=== PATIENT | male | born 1955 | race Caucasian/White ===

== ENCOUNTER 2017-03-05 09:56 | Day surgery (SDC) | payer MEDICARE ==
[~2017-03-05] VITALS: Ht 175.3 cm; Wt 105.0 kg
[2017-03-05] MEDS ORDERED: NASONEX NASAL S17 GM NS (11:58)
[2017-03-05] MEDS ORDERED: PROVENTIL HFA6.7 GM INH (11:58)
[2017-03-05] MEDS ORDERED: ADVAIR 250/501 DISK INH (11:58)
[2017-03-05] MEDS ORDERED: TYLENOL W/CODEI1 TAB PO (11:58)
[2017-03-05] MEDS ORDERED: FUROSEMIDE40 MG PO (11:59)
[2017-03-05] MEDS ORDERED: BYDUREON P2 MG/0.65 SC (11:59)
[2017-03-05] MEDS ORDERED: HUMULIN 70100 UNIT/1 SC (12:00)
[2017-03-05] MEDS ORDERED: KENALOG 0.1 % O15 GM TOPICAL (12:00)
[2017-03-05] MEDS ORDERED: PLAVIX75 MG PO (12:01)
[2017-03-05] MEDS ORDERED: NEURONTIN600 MG PO (12:01)
[2017-03-05] MEDS ORDERED: MIRALAX17 GM PO (12:02)
[2017-03-05] MEDS ORDERED: LOVASTATIN40 MG PO (12:02)
[2017-03-05 12:09] VITALS: BP 149/85; Ht 175.3 cm; Wt 105.0 kg
[2017-03-05 12:45] LABS: HEMATOCRIT 45.6 % (42.0-54.0); HEMOGLOBIN 14.8 g/dL (13.5-17.5); MCH 30.5 pg (26.0-34.0); MCHC 32.5 g/dL (31.0-37.0); MCV 93.8 fL (80.0-100.0); RBC 4.86 10x6/uL (4.20-6.10); RDW 13.4 % (11.5-14.5); WBC 10.5 10x3/uL (4.8-10.8)
[2017-03-05 12:54] LABS: CALC OSMOLALITY 286 mosm/kg (275-300); CARBON DIOXIDE 28.8 mmol/L (21.0-32.0); CHLORIDE - SERUM 104 mmol/L (98-107); GLUCOSE 272 mg/dL (74-106); POTASSIUM - SERUM 3.5 mmol/L (3.5-5.1); SODIUM 138 mmol/L (136-145); UREA NITROGEN 15 mg/dL (7-18); eGFR NON AFRICAN AMERICAN 80 mL/min (90-120)
--- NOTE | 2017-03-07 07:42 | OP ---
PATIENT NAME: YORDY MORGAN MEDICAL RECORD: [id number] :53 LOCATION:D.OPS ADMISSION DATE: SURGEON: JAN BRITO DO DATE OF OPERATION: 03/05/2017 PROCEDURE: Colonoscopy with endoscopic mucosal resection, hot snare polypectomy, biopsy and submucosal injection for tattooing. INDICATIONS FOR PROCEDURE: Periumbilical abdominal pain, change in bowel habits and fecal occult blood positive. SCOPE: Olympus video pediatric colonoscope. MEDICATIONS: Propofol 1200 mg IV per anesthesia. Withdrawal time greater than 15 minutes. ESTIMATED BLOOD LOSS: Less than 3 cc. FINDINGS: Informed consent was given. The patient was made comfortable with the above medication. After reaching an adequate level of sedation by slow IV push. The patient was placed on his left side. A digital rectal examination was performed, it was normal other than prostatic hypertrophy. There were no nodules or masses palpated on the prostate. The scope was then advanced under direct visualization through the anus to the cecum. The scope was then slowly withdrawn and mucosa was carefully examined. In the proximal ascending colon, just on the opposite wall from the ileocecal valve was a large, flat polyp measuring approximately 2 cm x 2.5 cm in size. It was lifted to look at closely. It was felt that this was too large for endoscopic mucosal resection, so biopsies were taken and tattoo was placed adjacent to the site. Upon slow withdrawal, just distal to this site in the mid to distal ascending colon, was a larger polyp which was also flat. It measured approximately 3.5-4 cm x 3 cm in size. It occupied 45% to 50% of the wall of the colon. There was a third polyp next to this site. Polyp was lifted and biopsies were taken. Tattoo was also placed near the site while awaiting pathology. In the transverse colon, there was another flat lesion, which was lifted. The polyp was too flat to be snared. It measured approximately 1.5 x 1 cm. Tattoo was placed adjacent to this site, so that APC could be performed. Upon withdrawal, there were 4 other polyps which were sessile and semi-flat in the left side of the colon. A variety of measures were taken to remove the polyps. One was removed with endoscopic mucosal resection technique with a lift and a hot snare polypectomy. Others were removed with hot snare alone. The polyps range in size from 6 mm to 1.2 cm. Retroflexion was performed in the rectum with no abnormalities found. The scope was withdrawn from the patient. The patient tolerated the procedure well and there were no complications. IMPRESSION: 1. Three large flat polyps as described above, located in the proximal ascending, mid to distal ascending and transverse colon. All were marked with tattoo for planned APC versus resection pending pathology and CT findings. 2. Multiple other polyps as described above, which were removed with EMR technique and snare polypectomy. PLAN AND RECOMMENDATIONS: 1. Discharge home when recovery parameters are met. OPERATIVE REPORT [id number] YORDY MORGAN 2. Referral to Dr. Baum for APC versus resection, pending pathology and CT findings. 3. CT abdomen and pelvis regarding large colon polyps. 4. check CEA level. 5. Follow up biopsy specimen results. 6. Continue current medications and current diet. TRANSINT:[id number] Voice Confirmation ID: [id number] DOCUMENT ID: [id number] JAN BRITO DO at 0742 CC: [id number] DICTATION DATE: 03/05/17 140 DISPATCHER SERVICE CHIEF: 03/05/17 2306 [facility] 03/05/17 [facility] [address] [place] [address]
== END 2017-03-05 15:10 | disposition home or self-care (01) ==
LOC: D.OPS 09:56
PROVIDERS: Anesthesiology
DX: K63.5 Polyp of colon (principal); D12.2 Benign neoplasm of ascending colon; D12.3 Benign neoplasm of transverse colon; N40.0 Benign prostatic hyperplasia without lower urinary tract symptoms

== ENCOUNTER 2017-05-29 09:27 | Inpatient (IN) | payer MEDICARE ==
[~2017-05-29] VITALS: Ht 175.3 cm; Wt 103.6 kg
[2017-05-29] VITALS (8 sets, daily range): BP systolic 179–199; BP diastolic 77–96; BMI 34.2
--- NOTE | ~2017-05-29 | OP ---
PATIENT NAME: YORDY MORGAN MEDICAL RECORD: [id number] :53 LOCATION:D.MS [id number] ADMISSION DATE:05/29/17 SURGEON: TONA PARK MD DATE OF OPERATION: 05/30/2017 PREOPERATIVE DIAGNOSES: Endoscopically unresectable colonic polypoid mass, tattooed. POSTOPERATIVE DIAGNOSES: Endoscopically unresectable colonic polypoid mass, tattooed, with nodular hepatomegaly. PROCEDURE: Hand-assisted laparoscopic right colectomy, also 18-gauge core needle liver biopsy. SURGEON: Tona Park MD CONTROL SUPERVISOR: None. BLOOD LOSS: Minimal. ANESTHESIA: General. COMPLICATIONS: None. The risks, possible complications and alternatives of procedure were explained to the patient. He elects to proceed. The discussion specifically included, but was not limited to, bleeding requiring emergency reoperation, infection, intestinal injury as well as an open procedure. OPERATIVE COURSE: The patient was conveyed to the operating room electively on 05/30/2017. General anesthesia was induced by the anesthesia staff. The abdomen was sterilely prepped and draped. A transverse incision was accomplished in the right side of the abdomen between the anterior superior iliac spine as well as the right costal margin. Sharp dissection was carried down through skin and subcutaneous tissue. I incised the external oblique aponeurosis along the direction of its fibers. I then incised through the internal oblique and transversus abdominis muscles. The peritoneal cavity was entered sharply. Stay sutures of 0 Vicryl were placed on the side of the peritoneum. A GelPort device was inserted. A 12-mm trocar was inserted through the Gelport device. CO2 insufflation was begun. Two more trocars were inserted. These were 5-mm trocars. They were inserted under direct internal vision utilizing a television camera. We will insert in the umbilicus. Another was inserted in the epigastrium. During insertion of the GelPort device as well as the trocars, there appeared to have been no injury to the bowels, any intraperitoneal or retroperitoneal structures. Utilizing the hand-assisted device, I incised along the white line of Toldt. I took down the hepatic retroperitoneal attachments. I folded the right colon medially. I swept down the duodenum. I was then able to exteriorize the right colon. I swept down the duodenum. The ureter was swept down as well and was protected during the operative procedure. A window was created in the mesentery of the distal ileum. I stapled across end of the ileum with Endo-JUSTA type staple utilizing a JUSTA-75 stapler utilizing a blue load. I then chose my distal extent of the resection as the proximal OPERATIVE REPORT [id number] YORDY MORGAN transverse colon just proximal to the middle colic artery. I created a window in the mesocolon. I stapled across the colon here utilizing a JUSTA-75 stapler. The interpose mesentery was taken down with the EnSeal device. I opened up the specimen on the back table. It appeared to contain the polypoid mass that had not been able to be removed endoscopically. I wanted more of the distal margin. However, I scrubbed back can return to the operative theater and excised another portion of the transverse colon, approximately 6 more inches of the transverse colon. A window was created in the mesentery of the transverse colon. I stapled the colon at this site with a JUSTA-75 stapler. The interpose mesentery was taken down with the EnSeal device. I opened up this portion of the colon on the back table. I noted no evidence of a colonic mass. Meticulous hemostasis was achieved with the electrocautery, we noted that there was an enlargement of the liver. Under laparoscopic guidance, I percutaneously accessed the right upper quadrant utilizing an 18-gauge core needle liver biopsy device. Cores were obtained over the convexity of the liver with the biopsy device. The biopsy sites were made hemostatic with the electrocautery. I then exteriorized the ileum as well as the transverse colon. These structures were brought into apposition side by side. I ensured there was no twisting or kinking of either a tubular structure. There was some redundant omentum which was excised utilizing EnSeal device. The small bowel and colon were placed in apposition side by side. They were held in place with numerous 3-0 Vicryl sutures. An enterotomy and colotomy were accomplished. Anvils of the JUSTA-75 stapler were advanced. I then fired. The resulting intracolonic defect was closed with a single firing of the TA 60 stapler. I then oversewed the staple line with multiple interrupted horizontal mattress 3-0 Vicryl sutures. The mesenteric rent was closed with a running #1 Vicryl. I irrigated and aspirated the right upper quadrant. There was no bleeding even at low pressure of 8. The 5-mm trocars were removed. The peritoneum in the right side of abdomen was closed with running #1 Vicryl. The transverse abdominis and internal oblique muscles were closed with running #1 Vicryls. The external oblique aponeurosis was closed with running #1 Vicryls. The deep adipose tissue was closed with interrupted 3-0 Vicryls. Subcutaneous adipose tissue was closed with interrupted 3-0 Vicryls. The skin was approximated with a running intracuticular 4-0 Vicryl. The skin at the umbilicus was closed with interrupted 4-0 Vicryl Rapide sutures. The other trocar site, a 5-mm trocar site in the epigastrium, was closed with a single intracuticular 3-0 Vicryl suture. Sterile dressings were applied. The patient was then extubated and conveyed to post-anesthesia care unit where he was in stable condition. TRANSINT:[id number] Voice Confirmation ID: [id number] DOCUMENT ID: [id number] OPERATIVE REPORT [id number] YORDY MORGAN ROBERT MD CC: FILIPE CARTAGENA and JAN BRITO DO [id number] DICTATION DATE: 05/30/171751 BATTER SCALER: 05/31/17 010 ADM IN [facility] [address] [place] [address]
--- NOTE | ~2017-05-29 | OP ---
PATIENT NAME: YORDY MORGAN MEDICAL RECORD: [id number] :53 LOCATION:D.MS [id number] ADMISSION DATE:05/29/17 SURGEON: ADÁN PARK MD DATE OF OPERATION: 05/29/2017 PREOPERATIVE DIAGNOSIS: Tattooed colon polyps times 3 involving the ascending colon as well as the transverse colon. POSTOPERATIVE DIAGNOSES: A total of 6 polypoid lesions were noted. I was able to remove 5 of these. One of these which was tattooed, I could not remove, it was centrally umbilicated, indurated and is suspicious for malignancy. PROCEDURES: 1. Total colonoscopy to cecum. 2. Hot biopsy forceps polypectomy times 1. 3. Piecemeal polypectomy times 1 with ablation of the base with the argon plasma engraver signature. 4. Biopsies of colonic mass involving the transverse colon with a partial ablation utilizing the argon plasma engraver signature, which is a radiofrequency type of ablation of a benign colonic process. SURGEON: Adán Park MD. PROTECTIVE SIGNAL OPERATOR: None. BLOOD LOSS: Minimal. ANESTHESIA: General. COMPLICATIONS: None. The risks, possible complications and alternatives to procedure were explained to the patient. He elects to proceed. OPERATIVE COURSE: The patient was conveyed to the operating room electively on 05/29/2017. General anesthesia was induced by the anesthesia staff. The patient was placed in the Evangelista position. A digital rectal examination was performed. A colonoscope was inserted through the anus. It was easily advanced to the cecum. The prep was inadequate. I slowly withdrew the endoscope. A total of 4 hot biopsy forceps polypectomies were performed. One of these was in the rectum. This was the largest of the lesions that were removed utilizing hot biopsy forceps polypectomy technique. It was a 1.8-cm lesion. All the lesions were removed in their entireties. There was a proximal colonic lesion across the ileocecal valve. This was removed in piecemeal fashion utilizing the cold endoscopic biopsy forceps. There was minimal amount of residual polypoid tissue and this was ablated with the argon plasma engraver signature utilizing the right colon setting in the forced mode. The most worrisome lesion was also a tattooed lesion. I biopsied this several times. When I pushed on the lesion with my biopsy forceps, I could tell that it was centrally umbilicated and it was quite firm and fixed. This is very suspicious for malignancy. After biopsying it several times, I took the argon plasma engraver signature and ablated as much of the polyps as I could utilizing the right colon setting in the forced OPERATIVE REPORT [id number] YORDY MORGAN. I slowly withdrew the endoscope. I irrigated and aspirated extensively. The fourth hot biopsy forceps polypectomy was performed in the rectum. I then performed a retroflexed view in the rectum. I unretroflexed the scope and removed it under direct vision. I have given the patient the option of staying overnight and having his right colectomy tomorrow as he has an unresectable colonic polypoid mass or to go home and return at a later date to undergo colectomy. He has elected to stay overnight. That way, he can avoid another bowel prep. He will need to made a full admit. TRANSINT:[id number] Voice Confirmation ID: [id number] DOCUMENT ID: [id number] ADÁN PARK MD CC: [id number] DICTATION DATE: 05/30/17 174 NEON LIGHT INSTALLER: 05/31/17 0033 ADM IN [facility] [address] [place] [id number]
--- NOTE | ~2017-05-29 | HP ---
PATIENT: YORDY MORGAN MEDICAL RECORD: [id number] ACCOUNT: [id number] LOCATION:D.MS [id number] : 53 ADMISSION DATE: 05/29/17 HISTORY AND PHYSICAL EXAMINATION DATE: 05/29/2017 HISTORY OF PRESENT ILLNESS: The patient underwent attempted removal of a number of colon polyps. I was able to remove 5 of 6 colon polyps. One colon polyp was indurated and ulcerated centrally. It appears to be fixed. This is quite worrisome for malignancy. I have given the patient the option of going home, being restarted on his Plavix and then recurring in 3-4 weeks after holding the Plavix again and him undergoing another bowel prep in preparation for a hand-assisted right hemicolectomy. Alternatively, I have given him the option of staying here in the hospital and we will do the operation on 05/30/2017. He is elected the latter choice. The risks, possible complications and alternatives to procedure were explained to the patient. He elects to proceed. The discussion specifically included, but was not limited to, bleeding requiring an emergency reoperation, infection, intestinal injury as well as colostomy formation and the possible need for chemotherapy in the future. TRANSINT:[id number] Voice Confirmation ID: [id number] DOCUMENT ID: [id number] TONA PARK MD CC: [id number] DICTATION DATE: 05/30/171737 GREENS KEEPER: 05/30/171956 ADM IN [facility] [address] [place] [address]
[~2017-05-29 09:27] MED LIST: ADVAIR 250/501 DISK INH; BYDUREON P2 MG/0.65 SC; FUROSEMIDE40 MG PO; HUMULIN 70100 UNIT/1 SC; K-DUR20 MEQ PO; KENALOG 0.1 % O15 GM TOPICAL; LOVASTATIN40 MG PO; MIRALAX17 GM PO; NASONEX NASAL S17 GM NS; NEURONTIN600 MG PO; PLAVIX75 MG PO; PROVENTIL HFA6.7 GM INH; TRAVATAN Z2.5 ML EACH EYE; TYLENOL W/CODEI1 TAB PO
[2017-05-29 10:43] LABS: HEMATOCRIT 43.8 % (42.0-54.0); HEMOGLOBIN 14.3 g/dL (13.5-17.5); MCH 30.8 pg (26.0-34.0); MCHC 32.6 g/dL (31.0-37.0); MCV 94.2 fL (80.0-100.0); MEAN PLATELET VOLUME 11.9 fL (7.4-10.4); RBC 4.65 10x6/uL (4.20-6.10); RDW 13.8 % (11.5-14.5); WBC 10.6 10x3/uL (4.8-10.8)
[2017-05-29 10:54] LABS: CALC OSMOLALITY 283 mosm/kg (275-300); CALCIUM 8.5 mg/dL (8.5-10.1); CARBON DIOXIDE 29.1 mmol/L (21.0-32.0); CHLORIDE - SERUM 103 mmol/L (98-107); GLUCOSE 151 mg/dL (74-106); SODIUM 141 mmol/L (136-145); UREA NITROGEN 12 mg/dL (7-18); eGFR NON AFRICAN AMERICAN 80 mL/min (90-120)
--- NOTE | 2017-05-29 15:18 | NUR ---
FSBS 118MG/DL
--- NOTE | 2017-05-29 16:15 | NUR ---
PATIENT TO ROOM AT THIS TIME. VS STABLE. IV INTACT. NO COMPLAINTS AT THIS TIME. STATED HE DIDNT WANT TO BE HERE AND THAT HE SHOULD HAVE JUST WENT HOME. BP INCREASED AT THIS TIME. RR NURSE STATED THAT HIS BASELINE IS HIGH SO ITS NORMAL FROM HIM. PATIENT STATED HE WANTS TO GET UP. RR NURSE TOLD HIM HE COULDNT AT THIS TIME. CHANGED PAD UNDER PATIENT. CALL LIGHT WITHIN REACH.
--- NOTE | 2017-05-29 16:35 | NUR ---
PATIENT UP TO BR WITH ASSIST. VS STABLE BUT BP STILL INCREASED. IV INTACT. NO COMPLAINTS. CALL LIGHT WITHIN REACH.
[2017-05-29 17:12] LABS: BASOPHILS 0.2 % (0-2); EOSINOPHILS 0.4 % (0-7); HEMATOCRIT 44.1 % (42.0-54.0); HEMOGLOBIN 14.4 g/dL (13.5-17.5); IMMATURE GRANULOCYTES 0.1 % (0-5); LYMPHOCYTES 16.8 % (15-50); MCHC 32.7 g/dL (31.0-37.0); MEAN PLATELET VOLUME 12.6 fL (7.4-10.4); MONOCYTES 6.4 % (2-11); NEUTROPHILS 76.1 % (40-80); PLATELET COUNT 128 10x3/uL (130-400); RBC 4.64 10x6/uL (4.20-6.10); RDW 14.2 % (11.5-14.5); WBC 9.7 10x3/uL (4.8-10.8)
--- NOTE | 2017-05-29 17:20 | NUR ---
PATIENT IN BED WITH IV INTACT. NO COMPLAINTS AT THIS TIME. CALL LIGHT WITHIN REACH.
[2017-05-29 17:31] LABS: ALBUMIN 3.2 g/dL (3.4-5.0); ANION GAP 14.2 mmol/L (8-16); BILIRUBIN - TOTAL 0.54 mg/dL (0.2-1.3); CALCIUM 8.1 mg/dL (8.5-10.1); CREATININE - SERUM 1.1 mg/dL (0.6-1.3); MAGNESIUM - SERUM 1.8 mg/dL (1.8-2.4); PHOSPHOROUS 3.4 mg/dL (2.5-4.9); POTASSIUM - SERUM 3.2 mmol/L (3.5-5.1)
--- NOTE | 2017-05-29 18:55 | NUR ---
PATIENT STATED HE IS NOT LETTING US TAKE ANYMORE VS. HE SAID HE IS HAVING TO GET UP TO THE BR AND THAT THE THING IS HURTING HIS ARM. TOOK BP CUFF OFF AND NOTIFIED NIGHT NURSE. IV INTACT. CALL LIGHT WITHIN REACH.
--- NOTE | 2017-05-29 20:29 | NUR ---
PT SEEN. STATES NO DISCOMFORT AT PRESENT. HAD PROCEDURE TODAY AND IS TO BATHROOM WITH ASSIST X 1. URINATES SMALL AMOUNTS AT A TIME. CALL LIGHT IN REACH
--- NOTE | 2017-05-29 21:35 | NUR ---
LYING IN BED,WITHOUT DISTRESS.DENIES NEEDS.CALL LIGHT IN REACH.DOOR CLOSED PER PT REQUEST.
[2017-05-30] VITALS: BP 158/84
--- NOTE | 2017-05-30 06:39 | NUR ---
REMAINS WITHOUT NEEDS.NPO FOR SURGEY TODAY.CONT PLAN OF CARE
--- NOTE | 2017-05-30 07:05 | NUR ---
PT REC'D FROM JING, KRIS. RESTING IN BED ON R SIDE. AAOX4. NO COMPLAINTS OF PAIN. IV BEEPING FROM BEING OCCLUDED ON PT SIDE. ATTEMPTED TO FLUSH, BUT WAS UNSUCCESSFUL. REMOVED DRESSING TO FIND CATHETER BENT. ATTEMPTED TO REINSERT AFTER STRAIGHTENING IT OUT AND FLUSH, BUT STILL WOULD NOT FLUSH. IV DC'D WITH CATHETER INTACT. PRESSURE AND DRESSING APPLIED. IV RESITED TO L FOREARM WITH 20 GUAGE IV CATHETER. X1 ATTEMPT. RECONNECTED TO IV TUBING. BOWEL SOUNDS ACTIVE X4 QUADS. BED LOW, CALL LIGHT IN REACH, DENEIS NEEDS. CPOC.
[2017-05-30 09:01] LABS: BASOPHILS 0.2 % (0-2); EOSINOPHILS 0.5 % (0-7); HEMATOCRIT 41.5 % (42.0-54.0); HEMOGLOBIN 13.3 g/dL (13.5-17.5); IMMATURE GRANULOCYTES 0.1 % (0-5); LYMPHOCYTES 23.1 % (15-50); MCH 30.2 pg (26.0-34.0); MCV 94.1 fL (80.0-100.0); MEAN PLATELET VOLUME 11.7 fL (7.4-10.4); MONOCYTES 7.7 % (2-11); NEUTROPHILS 68.4 % (40-80); PLATELET COUNT 130 10x3/uL (130-400); RBC 4.41 10x6/uL (4.20-6.10); RDW 13.9 % (11.5-14.5); WBC 9.5 10x3/uL (4.8-10.8)
[2017-05-30 09:19] LABS: ALBUMIN 2.9 g/dL (3.4-5.0); ALKALINE PHOSPHATASE 108 U/L (46-116); ALT (SGPT) 30 U/L (10-68); CALC OSMOLALITY 283 mosm/kg (275-300); CALCIUM 8.2 mg/dL (8.5-10.1); CARBON DIOXIDE 30.4 mmol/L (21.0-32.0); CHLORIDE - SERUM 104 mmol/L (98-107); CREATININE - SERUM 0.9 mg/dL (0.6-1.3); GLUCOSE 129 mg/dL (74-106); POTASSIUM - SERUM 3.2 mmol/L (3.5-5.1); PROTEIN - SERUM 6.8 g/dL (6.4-8.2); SODIUM 142 mmol/L (136-145); UREA NITROGEN 9 mg/dL (7-18); eGFR NON AFRICAN AMERICAN > 90 mL/min (90-120)
[2017-05-30 09:22] LABS: APTT 26.7 SECONDS (22.8-39.4); INR 0.97 (0.85-1.17); PROTIME 12.7 SECONDS (11.6-15.0)
[2017-05-30 09:41] VITALS: BP 168/77
--- NOTE | 2017-05-30 11:15 | NUR ---
CONSENTS OBTAINED AT THIS TIME. EXPLAINED TO PT WHAT EACH CONSENT WAS FOR. NO QUESTIONS OR CONCERNS AT THIS TIME. BED LOW, CALL LIGHT IN REACH, DENIES NEEDS. CPOC.
--- NOTE | 2017-05-30 11:41 | NUR ---
PT AOX4 RESP EVEN AND NONLABORED PT HERE FOR COLON POLYP FOR THIS VISIT. PT DENIES NEEDS AT THIS TIME IV TO LEFT FOREARM PATENT AND INTACT AT THIS TIME SRX2 BED AT LOWEST SETTING CALL LIGHT WITHIN REACH WILL CONTINUE TO MONITOR
[2017-05-30 12:55] VITALS: BP 166/75
--- NOTE | 2017-05-30 18:08 | NUR ---
REPORT REC'D FROM KRIS LIMA, IN RECOVERY. ROOM READY AND AWAITING PT ARRIVAL.
[2017-05-30 18:17] VITALS: BP 157/82
--- NOTE | 2017-05-30 20:30 | NUR ---
SHIFT ASSESSMENT COMPLETE AT THIS TIME. PT IS STATING THAT HE FEELS LIKE HE HAS TO TAKE A BM. UP WITH ASSIST TO BATHROOM. GAS EXPELLED. PT FAMILY MEMBER AT BEDSIDE STATING THAT HE WILL NOT LISTEN TO THE NURSING STAFF AND THAT HE WILL NOT STAY IN BED. REMOVED SCD'S DUE TO FALL RISK. PT BACK IN BED. AIR TRAFFIC INSTRUCTOR AND NS INFUSING TO L FOREARM. S1S2 AUDIBLE. BS ACTIVE IN ALL QUADS. BANDAGE ON ABD CDI WITH NO DRAINAGE NOTED. PT STATES THAT HE WILL STAY IN BED FROM NOW ON. OXIMIZER @ 8L/MIN. O2 SAT 96%. NO SIGNS OF DISTRESS NOTED. CALL LIGHT AND AIR TRAFFIC INSTRUCTOR IN REACH. DOOR OPEN. WILL CONT TO MONITOR.
--- NOTE | 2017-05-31 01:15 | NUR ---
PT SITTING UP IN BED STATING THAT HE FEELS LIKE HE HAS GAS. ASSISTED HIM TO THE RESTROOM. PT BACK IN BED. OXIMIZER ON. TV ON. OPERATIONS AND MAINTENANCE SPECIALIST AND CALL LIGHT IN REACH. WILL CONT TO MONITOR.
[2017-05-31 04:00] VITALS: BP 110/60
--- NOTE | 2017-05-31 05:00 | NUR ---
ASSISTED PT TO RESTROOM. HE STATES THAT HE HAS A LOT OF GAS AT THIS TIME AND THAT HIS STOMACH IS BOTHERING HIM. ICE CHIPS DELIVERED PER REQUEST. PT BACK IN BED. TV ON. PACKAGER HAND AND CALL LIGHT IN REACH.
[2017-05-31 09:02] VITALS: BP 97/49
[2017-05-31 10:37] LABS: BASOPHILS 0.1 % (0-2); EOSINOPHILS 0 % (0-7); IMMATURE GRANULOCYTES 0.4 % (0-5); LYMPHOCYTES 17.8 % (15-50); MCH 30.8 pg (26.0-34.0); MCHC 32.2 g/dL (31.0-37.0); MCV 95.7 fL (80.0-100.0); MONOCYTES 14.3 % (2-11); NEUTROPHILS 67.4 % (40-80); RDW 14.3 % (11.5-14.5)
[2017-05-31 10:50] LABS: RBC 3.25 10x6/uL (4.20-6.10); WBC 18.7 10x3/uL (4.8-10.8)
[2017-05-31 10:53] LABS: HEMATOCRIT 31.1 % (42.0-54.0); PLATELET COUNT 178 10x3/uL (130-400)
[2017-05-31 10:55] LABS: ALBUMIN 2.7 g/dL (3.4-5.0); BILIRUBIN - TOTAL 0.5 mg/dL (0.2-1.3); CALCIUM 7.7 mg/dL (8.5-10.1); PROTEIN - SERUM 5.9 g/dL (6.4-8.2)
[2017-05-31 10:56] LABS: ANION GAP 13.7 mmol/L (8-16); CREATININE - SERUM 2.5 mg/dL (0.6-1.3); POTASSIUM - SERUM 3.7 mmol/L (3.5-5.1)
--- NOTE | 2017-05-31 11:10 | NUR ---
ENTERED PT ROOM TO ANSWER CALL LIGHT. PT COMPLAINING OF NOT BEING ABLE TO URINATE. EXPLAINED TO PT THAT HE HAS A BRAMBILA CATHETER AND IT DRAINS HIS BLADDER CONTINUOUSLY. BRAMBILA UNHOOKED FROM STAT LOCK AND MANIPULATED TO ATTEMPT TO INCREASE FLOW. THIS WAS UNSUCCESSFUL. ASSISTED PT WITH AMBULATING AROUND ROOM. THIS ALLOWED APPOXIMATELY 10CC'S OF URINE TO FLOW INTO COLLECTION TUBE, BUT PT IS STILL COMPLAINING OF BEING UNABLE TO VOID. ASSISTED PT BACK TO CHAIR AT BEDSIDE. CALL LIGHT IN REACH, DENIES NEEDS. CPOC.
--- NOTE | 2017-05-31 11:30 | NUR ---
PT BLADDER SCANNED AND ONLY SHOWED 15CC'S ON SCANNER. CURRENT VS- BP: 129/67, O2: 98% ON 3L, P: 95, R: 17, AND T: 97.7. ASSISTED PT BACK TO BED. ABD ROUND AND SOFT. SKIN WARM AND SKIN COLOR RASMUSSEN AND PINK. DRESSINGS TO ABD CDI. BOWEL SOUNDS TO RLQ ABSENT, RUQ HYPOACTIVE, LUQ HYPOACTIVE, AND LLQ HYPOACTIVE. BED LOW, CALL LIGHT IN REACH, DENIES NEEDS. CPOC.
--- NOTE | 2017-05-31 12:18 | NUR ---
CURRENT BP 108/53, P 93, O2 95% ON 3L VIA NC, T 98.9, AND R 17. I'S AND O'S COLLECTED. PT HAS HAD 200CC'S OF IVF IN AND HAS HAD APPROXIMATELY 360CC'S FROM ICE CHIPS/WATER. ONLY 15CC'S OF URINE HAS BEEN MADE SINCE 0700. URINE THAT IS IN COLLECTION CHAMBER IS TEA COLORED WITH A MODERATE AMOUNT OF SEDIMENT IN IT. WILL COLLECT URINE SAMPLE FROM SITE.
--- NOTE | 2017-05-31 12:30 | NUR ---
DR. XAVIER HILL. NEW ORDERS REC'D AND ENTERED INTO SYSTEM. SPOKE WITH VEL REGARDING CONSULT FOR MEDICAL MANAGEMETNT.
[2017-05-31 13:26] VITALS: BP 108/53
[2017-05-31 14:00] VITALS: Ht 175.3 cm; Wt 103.6 kg
--- NOTE | 2017-05-31 14:05 | NUR ---
NS BOLUS FINISHED. CURRENT VS: BP- 159/66, P- 101, O2- 94% ON 3L. LAB AT BEDSIDE. BED LOW, CALL LIGHT IN REACH, DENIES NEEDS. CPOC.
[2017-05-31 14:29] LABS: ALBUMIN 2.6 g/dL (3.4-5.0); ANION GAP 12.2 mmol/L (8-16); BILIRUBIN - TOTAL 0.44 mg/dL (0.2-1.3); CALCIUM 7.5 mg/dL (8.5-10.1); CARBON DIOXIDE 26.3 mmol/L (21.0-32.0); CREATININE - SERUM 2.6 mg/dL (0.6-1.3); POTASSIUM - SERUM 3.5 mmol/L (3.5-5.1); PROTEIN - SERUM 6.1 g/dL (6.4-8.2)
--- NOTE | 2017-05-31 14:35 | NUR ---
BRAMBILA CATHETER CLAMPED OFF AT THIS TIME TO RETAIN URINE FOR SPECIMEN COLLECTION
[2017-05-31 14:46] LABS: BASOPHILS 0.2 % (0-2); EOSINOPHILS 0.1 % (0-7); HEMATOCRIT 30.3 % (42.0-54.0); HEMOGLOBIN 9.5 g/dL (13.5-17.5); IMMATURE GRANULOCYTES 0.4 % (0-5); LYMPHOCYTES 19.2 % (15-50); MCH 30.6 pg (26.0-34.0); MCHC 31.4 g/dL (31.0-37.0); MCV 97.7 fL (80.0-100.0); MEAN PLATELET VOLUME 12.3 fL (7.4-10.4); MONOCYTES 12.7 % (2-11); NEUTROPHILS 67.4 % (40-80); PLATELET COUNT 183 10x3/uL (130-400); RDW 14.6 % (11.5-14.5); WBC 19.6 10x3/uL (4.8-10.8)
--- NOTE | 2017-05-31 15:09 | NUR ---
Patient Name: YORDY MORGAN Admission Status: Elective Accout number: [id number] Admission Date: 05-29-2017 : 1955 Admission Diagnosis:BENIGN NEOPLASM OF ASCENDING COLON Attending: DEVI Current LOS: 2 Anticipated DC Date: 06-04-2017 Planned Disposition: Home Primary Insurance: MEDICARE A & B Discharge Planning Comments: CM MET WITH PATIENT REGARDING D/C NEEDS AND PLANS. PATIENT STATED HE LIVES ALONE AND HIS FRIEND (DON) COULD DRIVE HIM HOME AT DISCHARGE. PATIENT STATED HE HAS NO STEPS OR STAIRS AT HIS HOME. PATIENT IS INDEPENDENT WITH HIS CARE AND HAS A WHEELCHAIR, CANE, WALKER, OXYGEN (HS), AND GLUCOMETER AT HIS HOME. PATIENTS PCP IS DR. CARTAGENA AND PHARMACY IS [facility] IN [place]. PATIENT IS CURRENT WITH [facility]. CM WILL CONTINUE TO FOLLOW PATIENT WITH D/C NEEDS AND PLANS. PCP DR. OSIEL PATTERSON IN [place]- [phone] DONAlex MANZANOFRANCIA (FRIEND) [phone] Package Yarns Drying Machine Operator: Shelby Maier Is the patient Alert and Oriented? Yes 0 * How many steps to enter\exit or inside your home? 0 0 * PCP DR. CARTAGENA ([place]) 0 * Pharmacy [facility] IN [place] 0 * Preadmission Environment Home Alone 0 * ADLs Independent 0 * Equipment Cane Glucometer Oxygen Walker Wheelchair 0 * List name and contact numbers for known caregivers / representatives who currently or will assist patient after discharge: DONAlex FERRER (FRIEND) [phone] 0 * Community resources currently utilized Home Health 0 * Please name any agencies selected above. [facility] 0 * Additional services required to return to the preadmission environment? Yes 0 * Can the patient safely return to the preadmission environment? Yes 0 * Has this patient been hospitalized within the prior 30 days at any hospital? No 0 Grand Total: 0
[2017-05-31 16:28] VITALS: BP 108/54
[2017-05-31 18:17] LABS: APTT 27.8 SECONDS (22.8-39.4); INR 1.11 (0.85-1.17); PROTIME 14.2 SECONDS (11.6-15.0)
[2017-05-31 18:22] LABS: APPEARANCE CLOUDY (CLEAR); BILIRUBIN NEGATIVE (NEGATIVE); COLOR DK YELLOW (YELLOW); GLUCOSE 50 mg/dL (NEGATIVE); KETONE SMALL mg/dL (NEGATIVE); LEUKOCYTE ESTERASE TRACE (NEGATIVE); NITRITE NEGATIVE (NEGATIVE); PROTEIN 1+ mg/dL (NEGATIVE); SPECIFIC GRAVITY 1.025 (1.005-1.020); UROBILINOGEN NORMAL (NORMAL)
[2017-05-31 18:23] LABS: AMORPHOUS SEDIMENT <1+ /lpf (NONE SEEN); BACTERIA MODERATE /hpf (NONE SEEN); EPITHELIAL CELLS 0-5 /hpf (0-5); GRANULAR CAST 0-5 /lpf (NONE SEEN); HYALINE CAST 0-5 /lpf (NONE SEEN); MUCUS <1+ /lpf (NONE SEEN); RED CELLS - URINE 25-50 /hpf (0-5); WAXY CAST 0-5 /lpf (NONE SEEN); WHITE CELLS - URINE 0-5 /hpf (0-5)
[2017-05-31 20:00] VITALS: BP 109/52
[2017-06-01] VITALS: BP 129/56
--- NOTE | 2017-06-01 00:08 | NUR ---
PT ALERT & ORIENTED. ABDOMINAL INCISON AND LAP SITES C/D/I. GAVE SPRITE PER CLEAR DIET ORDER. COMPLETE ASSESSMENT PER FLOW-SHEET. NO OTHER NEEDS. WILL CONTINUE TO MONITOR.
[2017-06-01 04:00] VITALS: BP 136/58
--- NOTE | 2017-06-01 07:00 | NUR ---
PT UP TO BATHROOM. AMBULATING WITH WALKER AND PARTIAL ASSIST. O2 VIA NASAL CANULA AT 4L. L FOREARM PERIPHERAL IV WITH DRESSING INTACT, NO REDNESS OR SWELLING NOTED. PT REPORTS NO PAIN OR BURNING AT SITE. NS RUNNING AT 100ML/HR. ENVIRONMENTAL SCIENCE PROFESSOR WITH DIALUDID 0.2 MG EVERY 10 MINUTES WITH LOCKOUT OF 0.04MG. PT STATES THAT HE WEARS GLASSES AND DENTURES. CURRENTLY NOT WEARING GLASSES OR DENTURES. BRAMBILA SECURED TO LEFT THIGH. CLEAR YELLOW URINE NOTED. PT ON TELEMETRY WITH RATE OF 118 SYNUS TACH. S1S2 AUDIBLE. PERIPHERAL PULSES BOUNDING. LUNGS ARE CLEAR THROUGH OUT. ASSISTED PT TO CHAIR. BEDSIDE TABLE PLACED WITHIN REACH. CALL LIGHT IN REACH. WILL CONTINUE TO MONITOR.
[2017-06-01 07:01] LABS: BASOPHILS 0.1 % (0-2); EOSINOPHILS 0.2 % (0-7); HEMOGLOBIN 7.7 g/dL (13.5-17.5); IMMATURE GRANULOCYTES 0.3 % (0-5); LYMPHOCYTES 24.1 % (15-50); MCH 30.8 pg (26.0-34.0); MCHC 32.5 g/dL (31.0-37.0); MEAN PLATELET VOLUME 10.6 fL (7.4-10.4); MONOCYTES 12.1 % (2-11); NEUTROPHILS 63.2 % (40-80); RDW 14.4 % (11.5-14.5)
[2017-06-01 07:13] LABS: HEMATOCRIT 23.7 % (42.0-54.0); MCV 94.8 fL (80.0-100.0); PLATELET COUNT 105 10x3/uL (130-400); WBC 11.8 10x3/uL (4.8-10.8)
[2017-06-01 07:28] LABS: ALBUMIN 2.4 g/dL (3.4-5.0); ANION GAP 12.4 mmol/L (8-16); BILIRUBIN - TOTAL 0.4 mg/dL (0.2-1.3); CALCIUM 7.6 mg/dL (8.5-10.1); CARBON DIOXIDE 24.9 mmol/L (21.0-32.0); POTASSIUM - SERUM 3.3 mmol/L (3.5-5.1); PROTEIN - SERUM 5.9 g/dL (6.4-8.2)
[2017-06-01 07:35] LABS: CREATININE - SERUM 1.5 mg/dL (0.6-1.3)
[2017-06-01 08:27] VITALS: BP 143/64
--- NOTE | 2017-06-01 08:56 | NUR ---
PT RESTING IN BED. NICOTINE PATCH PLACED ON BACK OF LEFT SHOULDER.
--- NOTE | 2017-06-01 11:31 | NUR ---
BLOOD SUGAR 183. HUMALOG 2 UNIT GIVEN PER SLIDING SCALE. PT PERFOMING ISP EXERCISES. BEST EFFORT 750.
--- NOTE | 2017-06-01 12:37 | NUR ---
PT NOT IN ROOM AT THIS TIME. CURRENTLY HAVING A CT OF ABDOMEN PERFORMED.
[2017-06-01 13:47] VITALS: BP 130/67
--- NOTE | 2017-06-01 14:10 | NUR ---
BRAMBILA DC'D WITH CATHETER INTACT. 10ML OF FLUID REMOVED FROM BALLOON. 100ML YELLOW URINE IN BAG. PT TOLERATED WELL.
--- NOTE | 2017-06-01 15:26 | NUR ---
AFTERNOON MEDS GIVEN. PT AMBULATED TO BATHROOM WITH ASSIST. VERY LITTLE URINE NOTED. ASSISTED BACK IN BED. SCD'S RECONNECTED. PT RESTING COMFORTABLY IN BED. NO OTHER NEEDS AT THIS TIME.
[2017-06-01 16:15] VITALS: BP 141/61
--- NOTE | 2017-06-01 16:23 | NUR ---
BS 222. 4 UNITS OF HUMALOG GIVEN ON RIGHT ARM PER SLIDING SCALE.
--- NOTE | 2017-06-01 17:53 | NUR ---
1ST UNIT OF BLOOD STARTED. BEGINNING BP 135/56 MAP 82 PULSE RATE 95. ORAL TEMPERATURE 98.2. WILL CONTINUE TO MONITOR.
--- NOTE | 2017-06-01 17:55 | NUR ---
1ST UNIT OF PRBC'S INITIATED AT THIS TIME. STARTED AT 75 ML/HR TO LEFT HAND 20G IV.
--- NOTE | 2017-06-01 20:36 | NUR ---
AWAKE,ALERT,NO COMPLAINTS VOICED.IV INFUSING TO LEFT HAND/WRIST WITHOUT REDNESS OR EDEMA NOTED. CL IN REACH.
--- NOTE | 2017-06-01 20:50 | NUR ---
2ND UNIT PRBC'S STARTED. NO S/S REACTION NOTED.
--- NOTE | 2017-06-02 01:13 | NUR ---
AWAKE WIHT NO COMPLAINTS. CLIN REACH
[2017-06-02 04:00] VITALS: BP 149/61
[2017-06-02 06:31] LABS: BASOPHILS 0.1 % (0-2); EOSINOPHILS 0.1 % (0-7); IMMATURE GRANULOCYTES 0.4 % (0-5); LYMPHOCYTES 16.8 % (15-50); MCH 30.7 pg (26.0-34.0); MCHC 33.6 g/dL (31.0-37.0); MEAN PLATELET VOLUME 11.6 fL (7.4-10.4); NEUTROPHILS 71.6 % (40-80); PLATELET COUNT 124 10x3/uL (130-400); RDW 14.8 % (11.5-14.5); WBC 12.1 10x3/uL (4.8-10.8)
[2017-06-02 06:36] LABS: HEMATOCRIT 29.5 % (42.0-54.0); HEMOGLOBIN 9.9 g/dL (13.5-17.5); MCV 91.6 fL (80.0-100.0); RBC 3.22 10x6/uL (4.20-6.10)
[2017-06-02 06:50] LABS: ALBUMIN 2.8 g/dL (3.4-5.0); ANION GAP 13.4 mmol/L (8-16); BILIRUBIN - TOTAL 1.13 mg/dL (0.2-1.3); CALCIUM 8.3 mg/dL (8.5-10.1); POTASSIUM - SERUM 3.4 mmol/L (3.5-5.1); PROTEIN - SERUM 6.9 g/dL (6.4-8.2)
[2017-06-02 06:51] LABS: CREATININE - SERUM 1.1 mg/dL (0.6-1.3)
--- NOTE | 2017-06-02 07:17 | NUR ---
HUNG K+ FOR MONIE LEONARD, EP IS 3.4.
--- NOTE | 2017-06-02 07:45 | NUR ---
AWAKE AND ALERT. ORIENTED X3. REQUESTED REAL FOOD THIS AM. ORDER IS ADAT SO PATIENT REQUEST HONORED. LUNGS ARE CLEAR BILATERALLY, NO COUGH NOTED. SKIN IS INTACT WITHOUT REDNESS EXCEPT INCISION TO RIGHT MID ABDOMEN WHICH HAS A DRY INTACT DRESSING IN PLACE. IV TO LEFT WRIST IS PATENT WITHOUT REDNESS AT INSERTION SITE. WILL MONITOR. REPORTS GOOD NORMAL STOOL. BOWEL SOUNDS PRESENT AND ACTIVE X4.
[2017-06-02 08:21] VITALS: BP 159/74
--- NOTE | 2017-06-02 09:48 | NUR ---
AMBULATED WITH PT USING RW. TO BR WITH MIN ASSIST. VOIDED WITHOUT DIFFICULTY.
[2017-06-02 12:09] VITALS: BP 127/73
[2017-06-02 15:55] VITALS: BP 153/66
--- NOTE | 2017-06-02 17:00 | NUR ---
FSBS 132. NO COVERAGE. SUPPER SERVED IN ROOM. NO CHANGES NOTED. DENIES NEEDS.
[2017-06-02 19:53] VITALS: BP 146/62
[2017-06-02 23:30] VITALS: BP 110/59; BP 136/68
--- NOTE | 2017-06-03 02:12 | NUR ---
2100)FSBS 105.DRSG RT. SIDE OF ABDOMEN DRY AND INTACT.ABD. DISTENTED TIGHT BUT PALABLE. BOWEL SOUNDS HYPOACTIVE ALL QUAD.REFUSES SCD'S.WILL CONTINUE TO MONITOR FOR ANY CHGES. AND FOLLOW CURRENT PLAN OF CARE.
[2017-06-03 04:00] VITALS: BP 166/74
[2017-06-03 06:29] LABS: BASOPHILS 0.1 % (0-2); EOSINOPHILS 0.3 % (0-7); HEMATOCRIT 28.4 % (42.0-54.0); HEMOGLOBIN 9.4 g/dL (13.5-17.5); IMMATURE GRANULOCYTES 0.2 % (0-5); LYMPHOCYTES 19.4 % (15-50); MCH 30.7 pg (26.0-34.0); MCHC 33.1 g/dL (31.0-37.0); MCV 92.8 fL (80.0-100.0); MEAN PLATELET VOLUME 11.4 fL (7.4-10.4); PLATELET COUNT 121 10x3/uL (130-400); RBC 3.06 10x6/uL (4.20-6.10); RDW 14.8 % (11.5-14.5); WBC 9.7 10x3/uL (4.8-10.8)
[2017-06-03 06:45] LABS: ALBUMIN 2.5 g/dL (3.4-5.0); ALKALINE PHOSPHATASE 85 U/L (46-116); CALCIUM 8.2 mg/dL (8.5-10.1); CARBON DIOXIDE 29.3 mmol/L (21.0-32.0); CHLORIDE - SERUM 106 mmol/L (98-107); CREATININE - SERUM 0.9 mg/dL (0.6-1.3); POTASSIUM - SERUM 3.1 mmol/L (3.5-5.1); PROTEIN - SERUM 6.2 g/dL (6.4-8.2); SODIUM 141 mmol/L (136-145); UREA NITROGEN 9 mg/dL (7-18); eGFR NON AFRICAN AMERICAN > 90 mL/min (90-120)
[2017-06-03 06:46] LABS: ALT (SGPT) 77 U/L (10-68); CALC OSMOLALITY 279 mosm/kg (275-300); GLUCOSE 93 mg/dL (74-106)
--- NOTE | 2017-06-03 07:00 | NUR ---
AWAKE AND ALERT. ORIENTED X3. NO C/O AT THIS TIME. LUNGS ARE CLEAR BILATERALLY, NO COUGH NOTED. SKIN IS INTACT WITHOUT REDNESS EXCEPT INCISION TO ABDOMEN WHICH HAS A DRY INTACT DRESSING IN PLACE. SL TO LEFT HAND PATENT WITHOUT REDNESS AT INSERTION SITE. DENIES NEEDS.
--- NOTE | 2017-06-03 09:00 | NUR ---
UP TO BR WITH ONE PERSON ASSIST. HAD SMALL LOOSE BM. SKIN CARE PER STAFF.
[2017-06-03 10:07] VITALS: BP 171/89
--- NOTE | 2017-06-03 10:11 | NUR ---
UP TO BR PER SELF. HAD SMALL SOFT BM. SKIN CARE PER STAFF.
--- NOTE | 2017-06-03 12:00 | NUR ---
FSBS 167. GIVEN 2 UNITS HUMALOG SUBQ PER SS. LUNCH SERVED IN ROOM.
[2017-06-03 12:27] VITALS: BP 166/69
--- NOTE | 2017-06-03 14:50 | NUR ---
AMBULATED IN HALLWAY WITH RW. GAIT IS STEADY.
--- NOTE | 2017-06-03 14:51 | NUR ---
RESTING QUIETLY IN BED. DENIES NEEDS.
[2017-06-03 15:23] VITALS: BP 162/64
--- NOTE | 2017-06-03 17:11 | NUR ---
FSBS 193. GIVEN 2 UNITS HUMALOG SUBQ PER SS. UP TO BR WITH MIN ASSIST. HAD LOOSE WATERY STOOL. SKIN CARE PER STAFF.
--- NOTE | 2017-06-03 18:20 | NUR ---
ATE ALMOST ALL OF SUPPER. NO C/O AT THIS TIME. UP TO BR WITH MIN ASSIST OF ONE. HAD LOOSE WATERY STOOL. SKIN CARE PER STAFF. NO CHANGES NOTED.
--- NOTE | 2017-06-03 19:00 | NUR ---
REPORT RECIEVED ASSUMED CARE. PATIENT IN BED WITH IV INTACT. NO COMPLAINTS AT THIS TIME. ASSISTED TO BR AND BACK TO BED. CALL LIGHT WITHIN REACH.
[2017-06-03 20:00] VITALS: BP 164/78
--- NOTE | 2017-06-03 20:15 | NUR ---
ASSESSMENT COMPLETE, VS STABLE. NO OCMPLAINTS AT THIS TIME. BRUISING TO ABDOMEN NOTED. IV INTACT. PATIENT UP TO BR WITH ASSIST AND BACK TO BED. REQUESTED O2. NC 2 L PLACED ON PATIENT. CALL LIGHT WITHIN REACH.
--- NOTE | 2017-06-03 23:00 | NUR ---
PATIENT UP TO BR WITH ASSIST FROM MACHINE INSPECTOR THERE AND BACK TO BED. NO COMPLAINTS CALL LIGHT WITHIN REACH.
[2017-06-04] VITALS: BP 159/68
--- NOTE | 2017-06-04 00:56 | NUR ---
PATIENT IN BED RESTING QUIETLY, EYES CLOSED. ANTIBIOTIC STARTED IVPB. CALL LIGHT WITHIN REACH.
--- NOTE | 2017-06-04 01:52 | NUR ---
PATIENT IVPB FINISHED AT THIS TIME. IV FLUSHED, ORANGE CAP APPLIED. IV INTACT, CALL LIGHT WITHIN REACH. PATIENT RESTING QUIETLY.
[2017-06-04 04:00] VITALS: BP 162/66
--- NOTE | 2017-06-04 04:30 | NUR ---
PATIENT IN BED WITH EYES CLOSED RESTING QUIETLY AT THIS TIME. IV INTACT. CALL LIGHT WITHIN REACH.
[2017-06-04 05:48] LABS: BASOPHILS 0.1 % (0-2); EOSINOPHILS 0.5 % (0-7); HEMATOCRIT 29.1 % (42.0-54.0); HEMOGLOBIN 9.7 g/dL (13.5-17.5); IMMATURE GRANULOCYTES 0.3 % (0-5); LYMPHOCYTES 19.9 % (15-50); MCH 30.6 pg (26.0-34.0); MCHC 33.3 g/dL (31.0-37.0); MCV 91.8 fL (80.0-100.0); MEAN PLATELET VOLUME 11.8 fL (7.4-10.4); MONOCYTES 12.4 % (2-11); NEUTROPHILS 66.8 % (40-80); PLATELET COUNT 140 10x3/uL (130-400); RBC 3.17 10x6/uL (4.20-6.10); RDW 14.7 % (11.5-14.5); WBC 9.4 10x3/uL (4.8-10.8)
[2017-06-04 06:12] LABS: ALBUMIN 2.3 g/dL (3.4-5.0); ANION GAP 11.8 mmol/L (8-16); CARBON DIOXIDE 29.2 mmol/L (21.0-32.0); PROTEIN - SERUM 6.1 g/dL (6.4-8.2)
[2017-06-04 06:13] LABS: CREATININE - SERUM 1.2 mg/dL (0.6-1.3)
--- NOTE | 2017-06-04 06:52 | NUR ---
POTASSIUM IV INFUSING. PATIENT IV INTACT. NO COMPLAINTS. ASSISTED TO BR AND BACK. CALL LIGHT WITHIN REACH.
--- NOTE | 2017-06-04 08:24 | NUR ---
AM MEDS GIVEN. ASSISTED PT TO BATHROOM. REFUSES TO WEAR SCD'S. CURRENTLY SITTING ON SIDE OF BED EATING BREAKFAST.
[2017-06-04 08:33] VITALS: BP 162/81
[2017-06-04 12:17] VITALS: BP 176/83
--- NOTE | 2017-06-04 14:47 | NUR ---
NUTRITION MONITORING & EVAL CHART REVIEWED. PT TOLERATING ADA DIET WITH 100% INTAKE RECENT MEALS. WILL CONTINUE TO PROVIDE DIET, MONITOR PO INTAKE. RD FOLLOWING
--- NOTE | 2017-06-04 15:14 | NUR ---
PT SITTING ON SIDE OF BED WATCHING TV. NO NEEDS AT THIS TIME. WILL CONTINUE TO MONITOR.
[2017-06-04 16:42] VITALS: BP 163/71
[2017-06-04 20:00] VITALS: BP 140/68
[2017-06-05] VITALS: BP 138/90
--- NOTE | 2017-06-05 02:00 | NUR ---
PT IN BED WITH NO DISTRESS. RESPIRATIONS EVEN AND UNLABORED. SIDE RAILS X 2. BED IS LOW. CALL LIGHT IN REACH.
--- NOTE | 2017-06-05 03:43 | NUR ---
PT HAD IV IN LT HAND AND REMOVED IT DURING THE NIGHT, STATED " IT FELT LIKE IT WAS COMING OUT ANYWAYS" PT THEN TOOK SHOWER, SHAVED, THEN REFUSED IV. STATED HE WANTED TO LET HIS VEINS REST A BIT. IV EQUIPMENT IN PT ROOM, PT LYING IN BED WITH CALL LIGHT IN REACH, BED IN LOW POSITION
[2017-06-05 04:00] VITALS: BP 146/74
[2017-06-05 06:15] LABS: BASOPHILS 0.1 % (0-2); EOSINOPHILS 0.7 % (0-7); HEMATOCRIT 29.3 % (42.0-54.0); HEMOGLOBIN 9.6 g/dL (13.5-17.5); IMMATURE GRANULOCYTES 0.3 % (0-5); LYMPHOCYTES 19.9 % (15-50); MCH 30.4 pg (26.0-34.0); MCHC 32.8 g/dL (31.0-37.0); MCV 92.7 fL (80.0-100.0); MEAN PLATELET VOLUME 11.7 fL (7.4-10.4); MONOCYTES 13.8 % (2-11); NEUTROPHILS 65.2 % (40-80); PLATELET COUNT 154 10x3/uL (130-400); RBC 3.16 10x6/uL (4.20-6.10); RDW 14.8 % (11.5-14.5); WBC 11.2 10x3/uL (4.8-10.8)
[2017-06-05 06:46] LABS: ALBUMIN 2.4 g/dL (3.4-5.0); ALKALINE PHOSPHATASE 89 U/L (46-116); ALT (SGPT) 51 U/L (10-68); CALC OSMOLALITY 273 mosm/kg (275-300); CARBON DIOXIDE 27.6 mmol/L (21.0-32.0); CHLORIDE - SERUM 102 mmol/L (98-107); GLUCOSE 100 mg/dL (74-106); PROTEIN - SERUM 5.6 g/dL (6.4-8.2); SODIUM 137 mmol/L (136-145); UREA NITROGEN 12 mg/dL (7-18); eGFR NON AFRICAN AMERICAN 80 mL/min (90-120)
[2017-06-05 06:47] LABS: POTASSIUM - SERUM 3.5 mmol/L (3.5-5.1)
--- NOTE | 2017-06-05 08:50 | NUR ---
22 GAUGE PERIPHERAL IV STARTED ON L HAND X 2 ATTEMPTS. PT TOLERATED WELL. 10ML SALINE FLUSH USED.
[2017-06-05 08:54] VITALS: BP 151/68; BP 173/99
--- NOTE | 2017-06-05 11:40 | NUR ---
BLOOD SUGAR 116 NO INSULIN GIVEN PER SLIDING SCALE ORDERS.
[2017-06-05 11:55] VITALS: BP 147/70
[2017-06-05 15:48] VITALS: BP 155/67
--- NOTE | 2017-06-05 16:02 | NUR ---
PT IS GOING TO BE DISCHARGED TODAY. PT REFUSED LAST DOSE OF POTASSIUM. HIS POTASSIUM WAS 3.5 THIS MORNING. ON POTASSIUM PROTOCOL. DID NOT GIVE 4TH DOSE PER PT REFUSAL.
--- NOTE | 2017-06-05 17:07 | NUR ---
PERIPHERAL IV REMOVED WITH CATHETER INTACT. PT WAITING ON DISCHARGE PAPERS.
--- NOTE | 2017-06-05 17:23 | NUR ---
DISCHARGE PAPERS REVIEWED AT THIS TIME. NO QUESTIONS OR CONCERNS VOICED. DISCUSSED F/U APPOINTMENTS AND MEDICATIONS WELL. ESCORTED OUT VIA WC.
== END 2017-06-05 17:25 | disposition home health service (06) | DRG 828 ==
LOC: D.OPS 09:27 → D.MS 09:27 → D.OPS 10:00 → D.MS 15:48 → D.OPS 15:49 → D.MS 15:49
PROVIDERS: Anesthesiology; Family Medicine; ADMIT Surgery
PROC: 0DBL8ZX Excision of Transverse Colon, Via Natural or Artificial Opening Endoscopic, Diagnostic (ICD-10-PCS; 2017-05-29)
PROC: 0DBP8ZZ Excision of Rectum, Via Natural or Artificial Opening Endoscopic (ICD-10-PCS; 2017-05-29)
PROC: 0DBL8ZZ Excision of Transverse Colon, Via Natural or Artificial Opening Endoscopic (ICD-10-PCS; 2017-05-29)
PROC: 0DBK8ZX Excision of Ascending Colon, Via Natural or Artificial Opening Endoscopic, Diagnostic (ICD-10-PCS; principal; 2017-05-29 10:00)
PROC: 0FB03ZX Excision of Liver, Percutaneous Approach, Diagnostic (ICD-10-PCS; 2017-05-30)
PROC: 0DTF0ZZ Resection of Right Large Intestine, Open Approach (ICD-10-PCS; 2017-05-30 11:00)
DX: C7A.8 Other malignant neuroendocrine tumors (principal); D12.2 Benign neoplasm of ascending colon; D12.3 Benign neoplasm of transverse colon; K62.1 Rectal polyp; R16.0 Hepatomegaly, not elsewhere classified

== ENCOUNTER → 2017-06-27 07:37 | Outpatient (CLI) | payer MEDICARE ==
[2017-05-31 14:00] VITALS: BMI 34.1
== END | disposition home or self-care (01) ==
LOC: D.NM 07:37
DX: D72.829 Elevated white blood cell count, unspecified (principal); D64.9 Anemia, unspecified

== ENCOUNTER 2017-07-24 07:46 | Day surgery (SDC) | payer MEDICARE ==
[2017-07-24 08:53] LABS: BASOPHILS 0.1 % (0-2); EOSINOPHILS 0.5 % (0-7); HEMATOCRIT 41.8 % (42.0-54.0); HEMOGLOBIN 13.3 g/dL (13.5-17.5); IMMATURE GRANULOCYTES 0.1 % (0-5); LYMPHOCYTES 33.7 % (15-50); MCHC 31.8 g/dL (31.0-37.0); MCV 94.1 fL (80.0-100.0); MEAN PLATELET VOLUME 11.3 fL (7.4-10.4); MONOCYTES 10.5 % (2-11); NEUTROPHILS 55.1 % (40-80); PLATELET COUNT 179 10x3/uL (130-400); RBC 4.44 10x6/uL (4.20-6.10); RDW 14.5 % (11.5-14.5); WBC 9.5 10x3/uL (4.8-10.8)
[2017-07-24 09:06] LABS: CALC OSMOLALITY 278 mosm/kg (275-300); CALCIUM 8.7 mg/dL (8.5-10.1); CHLORIDE - SERUM 101 mmol/L (98-107); GLUCOSE 60 mg/dL (74-106); POTASSIUM - SERUM 3.1 mmol/L (3.5-5.1); SODIUM 141 mmol/L (136-145); UREA NITROGEN 13 mg/dL (7-18); eGFR NON AFRICAN AMERICAN 80 mL/min (90-120)
[2017-07-24 09:24] VITALS: BP 150/75; BMI 32.2
--- NOTE | 2017-07-24 14:48 | NUR ---
1315 IV DC WITH CATHER TIP INTACT
--- NOTE | 2017-07-27 09:49 | OP ---
PATIENT NAME: YORDY MORGAN MEDICAL RECORD: [id number] :53 LOCATION:D.OPS ADMISSION DATE: SURGEON: ADÁN PARK MD DATE OF OPERATION: 07/24/2017 PREOPERATIVE DIAGNOSIS: Postoperative abdominal wall fluid collection. POSTOPERATIVE DIAGNOSIS: Postoperative abdominal wall seroma. PROCEDURE: Incision and drainage of abdominal wall seroma with placement of drain. SURGEON: Adán Park MD EGG SMELLER: None. BLOOD LOSS: Minimal. ANESTHESIA: General. COMPLICATIONS: None. DRAIN: A 10-Mozambican round Kevin drain. The risks, possible complications, and alternatives to the procedure were explained to the patient. He elects to proceed. OPERATIVE COURSE: The patient was conveyed to the operating room electively on 07/24/2017. General anesthesia was induced by the anesthesia staff. The abdomen was sterilely prepped and draped. A transverse incision was accomplished within the right-sided abdominal scar. I dissected down to a pseudobursa, which was incised. Clear fluid was identified. It had no odor to it. Cultures were obtained. I aspirated all fluid in the pseudobursa. I then irrigated with half-strength hydrogen peroxide. A 10-Mozambican round Kevin drain was placed within the wound and brought out through the wound. The subdermis was approximated with interrupted 3-0 Vicryls. The skin was approximated with multiple interrupted 3-0 Vicryl Rapide sutures. The drain was sutured to the skin with a 2-0 nylon. A sterile dressing was applied. The patient was then extubated and conveyed to post-anesthesia care unit, where he was in stable condition. He will be dismissed home with [place] for pain. I will see him in the office in 2 weeks. We are going to teach him drain care prior to dismissal. TRANSINT:[id number] Voice Confirmation ID: [id number] DOCUMENT ID: [id number] ADÁN PARK MD at 0949 CC: [id number] DICTATION DATE: 07/24/17 1221 SNOW SHOVELER: 07/24/[address] [facility] 07/24/17 [place] [address]
--- NOTE | 2017-07-27 09:49 | HP ---
PATIENT: YORDY MORGAN MEDICAL RECORD: [id number] ACCOUNT: [id number] LOCATION:MIA : 53 ADMISSION DATE: 07/24/17 HISTORY AND PHYSICAL EXAMINATION CHIEF COMPLAINT: Fluid collection. HISTORY OF PRESENT ILLNESS: The patient underwent a CT scan, which revealed a significant fluid collection in the patient's abdominal wall. It did not appear that it connected to the underlying bowel and there was no air within the fluid collection. This may represent a seroma or hematoma or an abscess. We will plan for incision and drainage of this in the operating room today. The patient recently underwent a hand-assisted laparoscopic right hemicolectomy. He has undergone a hernia repair, coronary stents, operations on the knee and shoulder. He has a history of tremors, type 2 diabetes mellitus, arthritis, history of myocardial infarction, history of carotid endarterectomy. The patient is on home O2. He has sleep apnea. The patient has COPD, coronary artery disease, and hypertension. SOCIAL HISTORY: He is a smoker. I have advised him to quit smoking. ALLERGIES: No known drug allergies. HOME MEDICINES: Include Tylenol No. 3, Plavix which he is continued on, Advair Diskus, Neurontin, lovastatin, insulin, Nasonex, MiraLax, K-Dur, Proventil inhaler, Tylenol No. 3 with codeine, Lasix, potassium chloride, Aristocort ointment. PHYSICAL EXAMINATION: GENERAL: The patient does not appear acutely ill. He does appear chronically ill. VITAL SIGNS: Reviewed. HEAD: External ears appear normal. EYES: Extraocular movements are intact. NECK: Trachea is midline. CHEST: No intercostal retractions. PULMONARY: Nonlabored, no stridor. ABDOMEN: There is a fluid wave involving the right side of the abdomen. There is induration underneath the transverse incision. There is no evidence of infection. No excess heat production. No erythema. The area is tender. IMPRESSION: Postoperative fluid collection and abscess versus seroma versus hematoma. PLAN: Will be exploration in the operating room with drainage and placement of the drain. TRANSINT:[id number] Voice Confirmation ID: [id number] DOCUMENT ID: [id number] HISTORY AND PHYSICAL [id number] EDDIEKENDRICKYORDYTONA GRACE MD at 0949 CC: [id number] DICTATION DATE: 07/24/17 1218 DEFECT CUTTER: 07/24/17 1237 [facility] [place] 07/24/17 [place] [id number] [place] [id number]
== END 2017-07-24 13:30 | disposition home or self-care (01) ==
LOC: D.OPS 07:46
PROVIDERS: Anesthesiology
DX: T88.8XXA Other specified complications of surgical and medical care, not elsewhere classified, initial encounter (principal); F17.200 Nicotine dependence, unspecified, uncomplicated; I25.10 Atherosclerotic heart disease of native coronary artery without angina pectoris; I10 Essential (primary) hypertension; E11.9 Type 2 diabetes mellitus without complications; J44.9 Chronic obstructive pulmonary disease, unspecified; G47.30 Sleep apnea, unspecified; Z95.5 Presence of coronary angioplasty implant and graft; Z01.812 Encounter for preprocedural laboratory examination